=== PATIENT | female | born 1975 | race Caucasian/White ===

== ENCOUNTER 2019-01-23 05:54 | Day surgery (SDC) | payer OTHER ==
[2019-01-23] MEDS: LACTATED RINGER'S 1,000 ML IV (07:15)
[2019-01-23] MEDS ORDERED: ONDANSETRON 4 MG INJ (07:30)
[2019-01-23] MEDS ORDERED: PROPOFOL 20 ML (07:30)
[2019-01-23] MEDS ORDERED: SEVOFLURANE 15 MIN (07:30)
[2019-01-23] MEDS ORDERED: MEPERIDINE 100 MG INJ (07:30)
[2019-01-23] MEDS ORDERED: CEFAZOLIN 1 GM INJ (07:30)
[2019-01-23] MEDS ORDERED: LIDOCAINE 2% (SDV) 5 ML INJ (07:30)
[2019-01-23] MEDS ORDERED: METOCLOPRAMIDE 10 MG INJ (07:30)
[2019-01-23] MEDS ORDERED: DIPHENHYDRAMINE 50 MG INJ IV (08:30)
[2019-01-23] MEDS ORDERED: FENTAnyl 50 MCG/ML VIAL IV ×3 (08:30)
[2019-01-23] MEDS ORDERED: METOCLOPRAMIDE 10 MG INJ IV (08:30)
[2019-01-23] MEDS ORDERED: OXYCODONE/ACETAMINOPHEN (5/325) TAB PO (08:30)
[2019-01-23] MEDS ORDERED: HYDROmorphONE 1 MG/5 ML IV SYRINGE IV (08:30)
[2019-01-23] MEDS ORDERED: MIDAZOLAM 1 MG/ML 2 ML INJ IV (08:30)
[2019-01-23] MEDS ORDERED: MEPERIDINE 25 MG INJ IV (08:30)
[2019-01-23] MEDS: HYDROmorphONE 1 MG/5 ML IV SYRINGE IV ×2 (09:19→09:28)
[2019-01-23] MEDS: ONDANSETRON 4 MG INJ IV (09:19)
[2019-01-23] MEDS: OXYCODONE/ACETAMINOPHEN (5/325) TAB PO (10:03)
== END 2019-01-23 12:00 | disposition home or self-care (01) ==
LOC: SDS 05:54
DX: N92.1 Excessive and frequent menstruation with irregular cycle (principal)
CPT/HCPCS: 58353